=== PATIENT | male | born 1940 | race Hispanic/Latino ===

== ENCOUNTER → 2018-06-01 | Outpatient (CLI) | payer OTHER | END | disposition home or self-care (01) | LOC: RAH 08:45 | PROVIDERS: ATTEND Internal Medicine Gastroenterology | DX: D64.9 Anemia, unspecified (principal); D69.8 Other specified hemorrhagic conditions | CPT/HCPCS: 76700 ==

== ENCOUNTER 2019-09-02 07:12 | Day surgery (SDC) | payer OTHER ==
[2019-09-01] MEDS: CEFTRIAXONE SODIUM 1 GM IVP SCH (09:00)
[2019-09-01 12:35] LABS: BASOPHILS % (AUTO) 0.6 % (0.0-5.0); EOSINOPHILS % (AUTO) 0.9 % (0.0-8.0); HEMATOCRIT 36.9 % (42-54); LYMPHOCYTES % (AUTO) 9.8 % (21.0-51.0); MEAN CORPUSCULAR HEMOGLOBIN 31.4 pg (27.0-33.0); MEAN CORPUSCULAR HGB CONC 32.8 g/dL (32.0-36.0); MEAN CORPUSCULAR VOLUME 95.8 fL (79-99); MONOCYTES % (AUTO) 7.4 % (3.0-13.0); NEUTROPHILS % (AUTO) 80.1 % (40.0-77.0); PLATELET COUNT (AUTO) 141 K/uL (130-400); RED BLOOD CELL COUNT(AUTO) 3.85 MIL/uL (4.50-6.20); RED CELL DISTRIBUTION WIDTH 13.6 % (11.0-15.5); WHITE BLOOD COUNT (AUTO) 3.3 K/uL (4.8-10.8)
[2019-09-01 12:42] VITALS: BP 99/57
[2019-09-01 12:49] LABS: CREATININE 1.6 mg/dL (0.5-1.5)
[2019-09-02] VITALS (15 sets, daily range): BP systolic 123–144; BP diastolic 68–80
[~2019-09-02] VITALS: Ht 165.1 cm; Wt 87.5 kg
[~2019-09-02 07:12] MED LIST: ACET1TAB12 PO; LEVOTHYROXINE PO; NITROFURANTOIN PO; OLMESARTAN PO; PRAVASTATIN PO
[2019-09-02] MEDS ORDERED: LACTATED RINGERS 1000ML 1,000 ML IV ONE (09:01)
[2019-09-02] MEDS ORDERED: [UNRECOGNIZED DRUG - CODE] PO (09:22)
[2019-09-02] MEDS ORDERED: LIDOCAINE PF 2% 5ML ABBOJECT ONE (09:37)
[2019-09-02] MEDS ORDERED: MIDAZOLAM HCL 1 MG/ML 2ML VIAL ONE (09:37)
[2019-09-02] MEDS ORDERED: DEXAMETHASONE SOD PHOSPHATE 10MG/ML 1ML VIAL ONE (09:37)
[2019-09-02] MEDS ORDERED: PROPOFOL 10 MG/ML 20ML VIAL IV ONE (09:38)
[2019-09-02] MEDS ORDERED: FENTANYL CITRATE PF 50 MCG/1 ML 2ML VIAL ONE (09:44)
[2019-09-02] MEDS: CEFTRIAXONE SODIUM 1 GM IVP SCH (09:50)
[2019-09-02] MEDS ORDERED: FENTANYL CITRATE PF 50 MCG/1 ML 5ML AMP IV ONE (09:55)
[2019-09-02] MEDS ORDERED: PHENAZOPYRIDINE HCL 200 MG TABLET ONE (12:07)
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
== END 2019-09-02 12:40 | disposition home or self-care (01) ==
LOC: DAH 07:12
PROVIDERS: ATTEND Urology
DX: N21.0 Calculus in bladder (principal); N35.919 Unspecified urethral stricture, male, unspecified site; E03.9 Hypothyroidism, unspecified; I10 Essential (primary) hypertension; K21.9 Gastro-esophageal reflux disease without esophagitis; E11.9 Type 2 diabetes mellitus without complications; Z79.899 Other long term (current) drug therapy; Z85.46 Personal history of malignant neoplasm of prostate; Z88.8 Allergy status to other drugs, medicaments and biological substances
CPT/HCPCS: 36415 ×2; 52318; 80048; 82360; 85025; 93005; A4213; A4221; A4222; A4223; A4344; A4510; A4600; A4649; A4663; J0696; J1100; J2001; J2250; J2704; J3010 ×2; J7120 ×2